=== PATIENT | female | born 1955 | race Caucasian/White ===

== ENCOUNTER → 2016-10-26 | Day surgery (SDC) | payer BC ==
[~2016-10-26] MED LIST: COMBIVENT RESPIM4 GM IH; HYDROCHLOROTHIA25 MG PO; LOPRESSOR PO; PANTOPRAZOLE SO40 MG PO; VIREAD300 MG PO; ZESTRIL40 MG PO
--- NOTE | ~2016-10-26 | OR ---
Unit #: [id number] #: [id number] Patient: AKIRA JC [id number] [address] [place], [place] [address] [id number] MR#: [id number] NAME: AKIRA JC ROOM: Date of Procedure: 10/26/2016 Admission Date: 10/26/2016 Surgeon: Jefe Mccrary M.D. : 1955 Attending Physician: Jefe Mccrary M.D. Primary Care Physician: Lino Calvo M.D. OPERATIVE REPORT PRIMARY CARE PHYSICIAN Lino Calvo M.D. PREOPERATIVE DIAGNOSES The patient has history of [place] esophagus and has come for surveillance upper endoscopy. She also has history of hepatitis B on treatment from Dr. Leonid Vincent. PROCEDURES PERFORMED Upper gastrointestinal endoscopy and biopsy. POSTOPERATIVE DIAGNOSES 1. The patient had long segment of [place] esophagus extending from 30-38 cm from the incisors. Four quadrant biopsies obtained at three different levels at 33, 35 and 37 cm from the incisors. These were sent for histology. 2. Small hiatus hernia. 3. Moderate prepyloric antral erosive gastritis. This was in the form of linear erosions in the antral area. Biopsies obtained for the antrum for CLOtest. RECOMMENDATIONS 1. Follow up results of biopsies for any evidence of dysplasia. 2. The patient to have a repeat examination in 2 years. SEDATION USED MAC. DESCRIPTION OF PROCEDURE Following detailed explanation of the potential risks and complications of an upper endoscopy, namely perforation, bleeding, and complications related to sedation, the patient was brought to GI lab and laid in the left lateral decubitus position. Lubricated tip of the Olympus video upper endoscope was passed through the bite block into the proximal esophagus under direct vision. The entire esophageal mucosa was examined. The patient was noted to have long segment of [place] esophagus. This extended from 30-38 cm from the incisors. In addition, a small hiatus hernia was noted. The scope was then advanced into the gastric cavity and the latter was insufflated. Mucosa of the fundus, body, and antrum was examined and the patient was noted to have moderate prepyloric antral erythema and erosions indicating antral gastritis. Pylorus was intubated with visualization of the normal duodenal bulb and second and third part Unit #: [id number] #: [id number] Patient: AKIRA JC of the duodenum. Upon withdrawal and retroflexion, incisura, cardia, and greater curve examined and biopsy obtained from the antrum for CLOtest. The scope was withdrawn from the distal esophagus. Four-quadrant biopsies were obtained at 37, 35 and 33 cm from the incisors from the [place] segment. These were sent for histology. The entire esophageal mucosa was examined all the way up to pharynx. No additional findings noted. The patient tolerated the procedure without any postprocedure complications. Dictated by... Nicola Ramsey/lindsay TD: 10/26/2016 08:51 JOB #: [id number] CC: Nicola Abdalla III, M.D. OPERATIVE REPORT Page 1 of 1 X Jefe Mccrary MD X PROCEDURE OPERATIVE NOTE
== END | disposition home or self-care (01) ==
LOC: COPS 06:50
DX: K21.0 Gastro-esophageal reflux disease with esophagitis (principal); K44.9 Diaphragmatic hernia without obstruction or gangrene; K29.00 Acute gastritis without bleeding; I10 Essential (primary) hypertension; F17.210 Nicotine dependence, cigarettes, uncomplicated; Z79.899 Other long term (current) drug therapy; Z90.49 Acquired absence of other specified parts of digestive tract; Z98.51 Tubal ligation status; Z98.818 Other dental procedure status; Z98.890 Other specified postprocedural states
CPT/HCPCS: 87077; 88305